=== PATIENT | male | born 1975 | race Hispanic/Latino ===

== ENCOUNTER 2017-11-19 04:47 | Emergency (ER) | payer OTHER ==
[2017-11-19 05:03] VITALS: RESP 16; TEMP 97.9
--- NOTE | 2017-11-19 05:41 | ED PDOC ---
Upper Extremity Pain/Injury Time Seen by Provider: 11/19/17 05:23 Chief Complaint (Nursing): Upper Extremity Problem/Injury Chief Complaint (Provider): Neck and shoulder pain Additional History Per: Patient Additional Complaint(s): This is 42 y/o male with PMH of herniated cervical disk and HLD comes to the ED for evaluation and treatment of 4 days hx of neck and shoulder pain. As per patient pain started all the sudden and woke him up from sleep, pt saw a chiropractor which didn't really help. Neck pain /10 which radiated mainly on left shoulder and forearm, associated with numbness and tingling. Admits LROM but denies any vomiting, dizziness, fever, chills, chest pain, SOB, abdominal pain, or urinary symptoms Past Medical History Vital Signs: Last Vital Signs Temp 97.9 F 11/19/17 04:59 Pulse 89 11/19/17 04:59 Resp 16 11/19/17 04:59 BP 142/97 H 11/19/17 04:59 Pulse Ox 98 11/19/17 04:59 - Medical History PMH: Hyperlipidemia - Surgical History Surgical History: No Surg Hx - Family History Family History: States: No Known Family Hx - Living Arrangements Living Arrangements: With Family - Social History Current smoker - smoking cessation education provided: No Ex-Smoker (has not smoked in the last 12 months): No Alcohol: Social Drugs: Denies - Allergies Allergies/Adverse Reactions: Allergies Allergy/AdvReac Type Severity Reaction Status Date / Time No Known Allergies Allergy Verified 11/19/17 04:59 Review of Systems Constitutional: Negative for: Fever, Chills, Sweats Eyes: Negative for: Pain, Vision Change ENT: Negative for: Ear Pain, Nose Pain, Nose Congestion Cardiovascular: Negative for: Chest Pain, Palpitations, Orthopnea, Edema Respiratory: Negative for: Cough, Shortness of Breath Gastrointestinal: Negative for: Nausea, Vomiting, Abdominal Pain Genitourinary Male: Negative for: Dysuria Musculoskeletal: Positive for: Neck Pain, Shoulder Pain, Arm Pain Skin: Negative for: Rash Neurological: Positive for: Numbness (left arm ) Physical Exam - Reviewed Nursing Documentation Reviewed: Yes Vital Signs Reviewed: Yes - Physical Exam Appears: Positive for: No Acute Distress Head Exam: Positive for: ATRAUMATIC, NORMAL INSPECTION, NORMOCEPHALIC Skin: Positive for: Normal Color, Warm, Dry Eye Exam: Positive for: Normal appearance ENT: Positive for: Normal ENT Inspection Neck: Positive for: Decreased ROM, Pain On Movement Of Neck (no tenderness or swelling ) Cardiovascular/Chest: Positive for: Regular Rate, Rhythm, Chest Non Tender Respiratory: Positive for: Normal Breath Sounds Gastrointestinal/Abdominal: Positive for: Normal Exam, Bowel Sounds, Soft. Negative for: Tenderness Back: Positive for: Normal Inspection Extremity: Positive for: Normal ROM. Negative for: Tenderness, Swelling Neurologic/Psych: Positive for: Alert, Oriented. Negative for: Motor/Sensory Deficits - ECG O2 Sat by Pulse Oximetry: 98 - Progress ED Course And Treament: 42 y/o male with neck pain radiating left shoulder and arm - EKG - CT neck w/o cont - Percocet Case discussed with Dr. Kapadia Medical Decision Making Medical Decision Making: neck pain Disposition - Clinical Impression Clinical Impression: Shoulder pain, Neck pain - Disposition Disposition: Transfer of Care Disposition Time: 06:49 Condition: IMPROVED Forms: [employer] (Croatian)
[2017-11-19] MEDS ORDERED: Oxycodone/Acetaminophen 5/325 mg Tab PO STA (05:43)
--- NOTE | 2017-11-19 09:44 | CT ---
PROCEDURE: CT scan cervical spine dated 11/28/2027 HISTORY: Neck pain. History of disc herniation. COMPARISON: None available. TECHNIQUE: Axial computed tomography images were obtained of the cervical spine without the use of intravenous contrast. Coronal and sagittal reformatted images were created and reviewed. Radiation dose: Total exam DLP = 626.58 mGy-cm. This CT exam was performed using one or more of the following dose reduction techniques: Automated exposure control, adjustment of the mA and/or kV according to patient size, and/or use of iterative reconstruction technique. FINDINGS: VERTEBRAE: The current study reveals no acute compression fractures nor retropulsed fragments. Vertebral bodies exhibit relatively normal stature. Slight straightening of the normal upper cervical lordosis however vertebral bodies otherwise exhibit normal alignment. Facets normally aligned. DISCS/SPINAL CANAL/NEURAL FORAMINA: Multilevel degenerative spondylosis. At the C2-C3 level, there is relatively adequate. No disc herniation or significant disc bulge Facet joints are slightly hypertrophic. . Central canal appears adequate. Exit foramina are stenotic bilaterally. At the C3-C4 level, there is a adequate disc height. Minimal broad-based bulge of the posterior annulus is present which flattens the ventral surface of thecal sac though does not cause any significant canal compromise nor cord compression. Facet joints are mildly hypertrophic. Exit foramina are marginal to slightly narrowed on the right and adequate on the left. At the C4-C5 level, there is minor disc space narrowing. Moderate -large size asymmetric disc herniation ridge complex larger on the left than right with moderate compression of the ventral surface of the spinal cord more so on the left side. Minimal degenerative squaring of the uncovertebral joints. Facets also hypertrophic with bilateral foraminal stenosis. At the C5-C6 level, there is disc space narrowing with moderate-sized somewhat broad-based though irregular disc ridge complex contiguous with hypertrophic uncovertebral joints. The facets also hypertrophic. Changes result mild to moderate canal stenosis and cord compression. The exit foramina are stenotic bilaterally. At the C6-C7 level, there is also disc space narrowing with small osteophytic ridge disc complex contiguous with hypertrophic uncovertebral joints. Facets hypertrophic as well. Exit foramina appear stenotic. PARASPINAL SOFT TISSUES: Prevertebral and paraspinal soft tissues grossly unremarkable. Lung apices clear. No evidence of apical pneumothorax. OTHER FINDINGS: None. IMPRESSION: No acute fractures. Multilevel degenerative spondylosis most significantly affecting C4-C5 level with relatively moderate-large size asymmetric disc herniation larger on the left than right with what appears represent moderate canal stenosis and cord compression. . See above discussion for additional details and findings.
--- NOTE | 2017-11-19 10:41 | MRI ---
PROCEDURE: MRI of the cervical spine dated 11/19/2017 HISTORY: Left arm numbness, disc herniation COMPARISON: Comparison made with the CT scan cervical spine obtained earlier same day TECHNIQUE: Multiecho multiplanar sequences were performed through the cervical spine without the use of intravenous contrast. Study is somewhat limited due to motion artifact. FINDINGS: Current study reveals no acute compression fractures no retropulsed fragments. There is mild straightening of the normal cervical lordosis which may in part be due to patient positioning gantry however underlying element of muscle spasm presumably contributes. C2-C3: There is relatively adequate disc height however minor age related disc desiccation. No disc herniation or significant disc bulge. Facet joints do appear hypertrophic with bilateral foraminal stenosis more so on the left than right. C3-C4: Mild age related disc desiccation. Disc space heights relatively maintained. Small broad-based results in some flattening of the ventral surface of the thecal sac nearly reaching but not significantly deforming the ventral surface of the cord. Central canal appears adequate facet joints are also mildly hypertrophic. Exit foramina are marginal to slightly narrowed. C4-C5: There is moderate -large central and bilateral (left larger than right) disc herniation ridge complex that does result in moderate canal stenosis and cord compression more so on the left side. Minor hypertrophic uncovertebral joint changes. Facets are hypertrophic with bilateral foraminal stenosis. C5-C6: Disc desiccation and disc space narrowing. Small broad-based disc ridge complex contiguous with hypertrophic uncovertebral joints. The changes result in moderate canal stenosis and cord compression. Facet joints also hypertrophic Exit foramina are stenotic bilaterally. C6-C7: Disc desiccation with disc space narrowing more so along the posterior disc margin. Small medium-sized disc ridge complex contiguous with hypertrophic uncovertebral joints. Facets also hypertrophic. Changes result in mild moderate canal narrowing and cord compression. Exit foramina are narrowed bilaterally more so on the left side. . C7-T1: No disc herniation, spinal canal stenosis or neural foraminal narrowing. OTHER FINDINGS: No definitive intrinsic signal changes seen within the visualized spinal cord on the on this somewhat limited study. Cervicomedullary junction unremarkable. IMPRESSION: Limited motion degraded study. No acute fractures. Straightening of the normal upper cervical lordosis in part of likely due to patient positioning in the gantry as well as underlying muscle spasm. Multilevel degenerative spondylosis most significantly affecting C4-C5 level where there is a moderate to large size of disc herniation larger on the left than right with commensurate canal stenosis and cord compression.
--- NOTE | 2017-11-19 13:27 | CARD ---
APPROVED REPORT EKG Measurement Heart [id number] <Conclusion> Normal sinus rhythm Normal ECG
[2017-11-19] MEDS ORDERED: Dexamethasone 10 MG in Dextrose 5% In Water 50 ML IV ONE (13:36)
[2017-11-19 14:00] LABS: SQUAMOUS EPITHIAL < 1 /hpf (0-5); URINE BILIRUBIN NEGATIVE (NEGATIVE); URINE BLOOD NEGATIVE (NEGATIVE); URINE CLARITY CLEAR (Clear); URINE COLOR YELLOW (YELLOW); URINE GLUCOSE (UA) NEG (Normal); URINE LEUKOCYTE ESTERASE NEG Leu/uL (Negative); URINE NITRATE NEGATIVE (NEGATIVE); URINE PROTEIN NEGATIVE (NEGATIVE); URINE UROBILINOGEN 0.2-1.0 mg/dL (0.2-1.0)
[2017-11-19] MEDS ORDERED: Dexamethasone 10 MG in Sodium Chloride 0.9% 50 ML IV ONE (14:11)
[2017-11-19 14:19] LABS: BASO # 0.1 K/uL (0.0-0.2); BASO % 0.7 % (0.0-2.0); EOS # 0.3 K/uL (0.0-0.7); EOS % 4.2 % (0.0-4.0); HEMOGLOBIN 17.3 g/dL (12.0-18.0); LYMPH # 1.9 K/uL (1.0-4.3); LYMPH % 23.3 % (20.0-40.0); MEAN CORPUSCULAR HEMOGLOBIN 29.5 pg (27.0-31.0); MEAN CORPUSCULAR HGB CONC 34.8 g/dL (33.0-37.0); MEAN PLATELET VOLUME 7.6 fl (7.2-11.7); MONO # 0.5 K/uL (0.0-0.8); MONO % 6.8 % (0.0-10.0); NEUT # 5.3 K/uL (1.8-7.0); NRBC % 0.2 % (0.0-0.0); RBC 5.85 Mil/uL (4.40-5.90); RED CELL DISTRIBUTION WIDTH 12.8 % (11.5-14.5); WHITE BLOOD COUNT 8.1 K/uL (4.8-10.8)
[2017-11-19 14:26] LABS: PROTHROMBIN TIME 11.8 Seconds (9.8-13.1)
[2017-11-19 14:27] LABS: INR 1.1 (0.9-1.2); PARTIAL THROMBOPLASTIN TIME 33.1 Seconds (25.6-37.1)
[2017-11-19 14:50] VITALS: BP 145/83; PULSE 82; O2SAT 96
[2017-11-19 15:13] LABS: ALB/GLOB RATIO 1.3 (1.0-2.1); ALBUMIN 4.4 g/dL (3.5-5.0); ALT/SGPT 39 U/L (21-72); AST/SGOT 32 U/L (17-59); BLOOD UREA NITROGEN 16 mg/dl (9-20); CALCIUM 9.3 mg/dL (8.4-10.2); GFR AFRICAN-AMERICAN > 60; GFR NON-AFRICAN AMERICAN > 60
--- NOTE | 2017-11-19 15:40 | CP.PCM.CON ---
History of Present Illness - History of Present Illness History of Present Illness: Neurology Consultation Note Mr. Quintana is a 42-year-old man with a previous history of cervical spine disc disease and herniation diagnosed 4 years ago, who states that he went snorkeling and may had some strenuous activity to his neck last week. Since then, he has been complaining of increased neck pain. Last night the pain was severe and was associated with left arm numbness and weakness. He presented to the ED and an MRI of the cervical spine showed disc herniation and spinal cord compression at C4/5, C5/6 and C6/7. Neurosurgery was consulted. I saw the patient from a neurological perspective and recommended IV steroids for the pain and possible cord edema. Review of Systems - Review of Systems All systems: reviewed and no additional remarkable complaints except Past Patient History - Past Social History Alcohol: Social Drugs: Denies - MUSCULOSKELETAL/RHEUMATOLOGICAL Hx Herniated Disk: Yes (Cervical) - PSYCHIATRIC Hx Substance Use: No - SURGICAL HISTORY Hx Surgeries: No - ANESTHESIA Hx Anesthesia: No Meds Allergies/Adverse Reactions: Allergies Allergy/AdvReac Type Severity Reaction Status Date / Time No Known Allergies Allergy Verified 11/19/17 04:59 Physical Exam - Neurological Exam Neurological exam: Alert, CN II-XII Intact, Normal Gait, Oriented x3 Additional comments: Reflexes are brisk on the left C5/6 region with decreased sensation in that dermatomal region. Otherwise strength is symmetrical throughout. Bilateral lower extremities are normal in strength and sensation. Gait is normal. Romberg is normal. Results - Vital Signs Recent Vital Signs: Last Vital Signs Temp 97.9 F 11/19/17 04:59 Pulse 82 11/19/17 14:49 Resp 16 11/19/17 14:49 BP 145/83 11/19/17 14:49 Pulse Ox 96 11/19/17 14:49 - Labs Result Diagrams: 11/19/17 13:50 11/19/17 14:58 Labs: Laboratory Results - last 24 hr 11/19/17 11/19/17 11/19/17 13:50 13:50 13:50 WBC 8.1 RBC 5.85 Hgb 17.3 Hct 49.7 MCV 85.0 MCH 29.5 MCHC 34.8 RDW 12.8 Plt Count 348 MPV 7.6 Neut % (Auto) 65.0 Lymph % (Auto) 23.3 [place] % (Auto) 6.8 Eos % (Auto) 4.2 H Baso % (Auto) 0.7 Neut # (Auto) 5.3 Lymph # (Auto) 1.9 [place] # (Auto) 0.5 Eos # (Auto) 0.3 Baso # (Auto) 0.1 PT 11.8 INR 1.1 APTT 33.1 Sodium Potassium Chloride Carbon Dioxide Anion Gap BUN Creatinine Est GFR ( Amer) Est GFR (Non-Af Amer) Random Glucose Calcium Total Bilirubin AST ALT Alkaline Phosphatase Total Protein Albumin Globulin Albumin/Globulin Ratio Urine Color Yellow Urine Clarity Clear Urine pH 7.0 Ur Specific [place] 1.021 Urine Protein Negative Urine Glucose (UA) Neg Urine Ketones Negative Urine Blood Negative Urine Nitrate Negative Urine Bilirubin Negative Urine Urobilinogen 0.2-1.0 Ur Leukocyte Esterase Neg Urine RBC (Auto) 2 Urine Microscopic WBC < 1 Ur Squamous Epith Cells < 1 11/19/17 14:58 WBC RBC Hgb Hct MCV MCH MCHC RDW Plt Count MPV Neut % (Auto) Lymph % (Auto) [place] % (Auto) Eos % (Auto) Baso % (Auto) Neut # (Auto) Lymph # (Auto) [place] # (Auto) Eos # (Auto) Baso # (Auto) PT INR APTT Sodium 140 Potassium 4.1 Chloride 105 Carbon Dioxide 21 L Anion Gap 18 BUN 16 Creatinine 0.7 L Est GFR ( Amer) > 60 Est GFR (Non-Af Amer) > 60 Random Glucose 97 Calcium 9.3 Total Bilirubin 1.2 AST 32 ALT 39 Alkaline Phosphatase 46 Total Protein 7.8 Albumin 4.4 Globulin 3.4 Albumin/Globulin Ratio 1.3 Urine Color Urine Clarity Urine pH Ur Specific [place] Urine Protein Urine Glucose (UA) Urine Ketones Urine Blood Urine Nitrate Urine Bilirubin Urine Urobilinogen Ur Leukocyte Esterase Urine RBC (Auto) Urine Microscopic WBC Ur Squamous Epith Cells Assessment & Plan (1) Spinal cord compression Assessment and Plan: The patient complains of numbness and weakness, subjectively. On exam, his strength is symmetrical. The MRI shows cord compression due to disc herniation. I recommend starting decadron 10 mg Q 8 hours and discussing a possible emergent surgery with the neurosurgical team. No further recommendations at this time. Thank you. Status: Acute Priority: High
--- NOTE | 2017-11-19 18:13 | ED PDOC ---
- Laboratory Results Result Diagrams: 11/19/17 13:50 11/19/17 14:58 - ECG O2 Sat by Pulse Oximetry: 96 - Progress ED Course And Treament: recd 7am signout pending CT CSpine CT revealed disc herniation, given acute neurologic symptoms of LUE numbness/ tingling/weakness MRI ordered: On my exam, LUE 4/5 bicipetal strength, mild loss subjective sensation C5 dermatome Accession No. : [id number] Patient Name / ID : STAR Smith / [id number] Exam Date : 11/19/2017 08:46:43 ( Approved ) Study Comment : Sex / Age : M / 42Y Creator : Kaz Plummer MD Dictator : Kaz Plummer MD Leather Cleaner : Slat Twister : Kaz Plummer MD Approver2 : Report Date : 11/19/2017 10:40:12 My Comment : PROCEDURE: MRI of the cervical spine dated 11/19/2017 HISTORY: Left arm numbness, disc herniation COMPARISON: Comparison made with the CT scan cervical spine obtained earlier same day TECHNIQUE: Multiecho multiplanar sequences were performed through the cervical spine without the use of intravenous contrast. Study is somewhat limited due to motion artifact. FINDINGS: Current study reveals no acute compression fractures no retropulsed fragments. There is mild straightening of the normal cervical lordosis which may in part be due to patient positioning gantry however underlying element of muscle spasm presumably contributes. C2-C3: There is relatively adequate disc height however minor age related disc desiccation. No disc herniation or significant disc bulge. Facet joints do appear hypertrophic with bilateral foraminal stenosis more so on the left than right. C3-C4: Mild age related disc desiccation. Disc space heights relatively maintained. Small broad-based results in some flattening of the ventral surface of the thecal sac nearly reaching but not significantly deforming the ventral surface of the cord. Central canal appears adequate facet joints are also mildly hypertrophic. Exit foramina are marginal to slightly narrowed. C4-C5: There is moderate -large central and bilateral (left larger than right) disc herniation ridge complex that does result in moderate canal stenosis and cord compression more so on the left side. Minor hypertrophic uncovertebral joint changes. Facets are hypertrophic with bilateral foraminal stenosis. C5-C6: Disc desiccation and disc space narrowing. Small broad-based disc ridge complex contiguous with hypertrophic uncovertebral joints. The changes result in moderate canal stenosis and cord compression. Facet joints also hypertrophic Exit foramina are stenotic bilaterally. C6-C7: Disc desiccation with disc space narrowing more so along the posterior disc margin. Small medium-sized disc ridge complex contiguous with hypertrophic uncovertebral joints. Facets also hypertrophic. Changes result in mild moderate canal narrowing and cord compression. Exit foramina are narrowed bilaterally more so on the left side. . C7-T1: No disc herniation, spinal canal stenosis or neural foraminal narrowing. OTHER FINDINGS: No definitive intrinsic signal changes seen within the visualized spinal cord on the on this somewhat limited study. Cervicomedullary junction unremarkable. IMPRESSION: Limited motion degraded study. No acute fractures. Straightening of the normal upper cervical lordosis in part of likely due to patient positioning in the gantry as well as underlying muscle spasm. Multilevel degenerative spondylosis most significantly affecting C4-C5 level where there is a moderate to large size of disc herniation larger on the left than right with commensurate canal stenosis and cord compression. -= patient placed in [facility] Neurosurgery consulted stat Dr Herrera neurology recommended decadron 10mg IV after reviewing MRI Dr Prince saw patient in ED and reportedly discussed options, and will admit patient for urgent operative intervention given development of LUE weakness/ numbness. Admit medicine fashion consultant selling Dr Cantu Disposition Counseled Patient/Family Regarding: Studies Performed, Diagnosis, Need For Followup, Rx Given - Clinical Impression Clinical Impression: Cord compression, Upper extremity weakness - Disposition Disposition Time: 14:00 Condition: IMPROVED Forms: [employer] (Amharic)
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
== END 2017-11-19 19:00 | disposition left against medical advice (07) ==
LOC: H.ER 04:47 → UNDOADMIN 17:38 → H.ERHOLD 17:38 → UNDODISIN 19:00
DX: M25.512 Pain in left shoulder (principal); M54.2 Cervicalgia
CPT/HCPCS: 72125; 72141; 80053; 81003; 85025; 85610; 85730; 93005; 96372; 96374; 99284; J1100; J1885